=== PATIENT | male | born 2000 | race Two or more races ===

== ENCOUNTER 2024-08-20 16:03 | Emergency (ER) | payer MEDICAID ==
[~2024-08-20] VITALS: Ht 165.1 cm; Wt 170.0 kg
[2024-08-20] MEDS: LIDOCAINE 1% 10 ML VIAL ID ONE (17:06)
[2024-08-20] MEDS: SODIUM CHLORIDE 0.9% 250 ML IRRIG SOLUTION BOTTLE IRRIG ONE (17:07)
[2024-08-20] MEDS: IBUPROFEN 600 MG TABLET PO ONE (19:01)
[2024-08-20 19:46] VITALS: TEMP 98.4
[2024-08-20] MEDS ORDERED: CEPH-558 PO (19:47)
[2024-08-20] MEDS: BACITRACIN 0.9 GM PACKET OINTMENT TP ONE (19:56)
[2024-08-20 19:57] VITALS: BP 116/67; PULSE 62; RESP 18; O2SAT 100
== END 2024-08-20 20:17 | disposition home or self-care (01) ==
LOC: EMS 16:03
DX: S61.213A Laceration without foreign body of left middle finger without damage to nail, initial encounter (principal); W45.8XXA Other foreign body or object entering through skin, initial encounter; Y93.89 Activity, other specified; Y92.89 Other specified places as the place of occurrence of the external cause; Y99.8 Other external cause status
CPT/HCPCS: 99283; 12001; J3490